=== PATIENT | female | born 1990 | race Two or more races ===

== ENCOUNTER 2023-04-21 17:56 | Emergency (ER) | payer MEDICAID ==
[~2023-04-21] VITALS: Ht 152.4 cm; Wt 65.8 kg
[2023-04-21] MEDS ORDERED: LIDOCAINE HCL/MPF 1% 30 ML VIAL IJ ONE (18:13)
[2023-04-21] MEDS ORDERED: LIDOCAINE HCL/PF 1% 30 ML VIAL TP ONE (18:30)
[2023-04-21] MEDS ORDERED: CEPH750C9 PO (18:49)
[2023-04-21 18:58] VITALS: BP 126/83; TEMP 98.2; O2SAT 97
== END 2023-04-21 18:57 | disposition home or self-care (01) ==
LOC: ER 18:13
DX: S61.411A Laceration without foreign body of right hand, initial encounter (principal); W45.8XXA Other foreign body or object entering through skin, initial encounter; Y93.E9 Activity, other interior property and clothing maintenance; Y92.098 Other place in other non-institutional residence as the place of occurrence of the external cause; Y99.8 Other external cause status
CPT/HCPCS: 12002; 99282; J3490

== ENCOUNTER 2023-05-03 13:59 | Emergency (ER) | payer MEDICAID ==
[~2023-05-03] VITALS: Ht 154.9 cm; Wt 65.8 kg
[~2023-05-03 13:59] MED LIST: CEPH750C9 PO
[2023-05-03 14:06] VITALS: BP 132/67; TEMP 98.4; O2SAT 100
[2023-05-03] MEDS ORDERED: CLIN300C12 PO ×2 (14:19→14:26)
== END 2023-05-03 14:28 | disposition home or self-care (01) ==
LOC: ER 14:05
DX: Z48.02 Encounter for removal of sutures (principal)